=== PATIENT | male | born 1995 | race Two or more races ===

== ENCOUNTER 2025-02-09 08:25 | Emergency (ER) | payer BC ==
[~2025-02-09] VITALS: Ht 177.8 cm; Wt 70.3 kg
[2025-02-09] MEDS ORDERED: TDAP [DIPH/PERTUSSIS/TET] 0.5 ML VIAL IM ONE ×2 (09:00→09:04)
[2025-02-09 09:16] VITALS: BP 113/72; TEMP 98.1; O2SAT 97
== END 2025-02-09 09:17 | disposition home or self-care (01) ==
LOC: ER 08:34
DX: S01.112A Laceration without foreign body of left eyelid and periocular area, initial encounter (principal); W22.8XXA Striking against or struck by other objects, initial encounter; Y93.89 Activity, other specified; Y92.89 Other specified places as the place of occurrence of the external cause; Y99.8 Other external cause status
CPT/HCPCS: 12011; 99282; A6403; 90715

== ENCOUNTER 2025-02-16 07:57 | Emergency (ER) | payer BC ==
[~2025-02-16] VITALS: Ht 177.8 cm; Wt 73.0 kg
[2025-02-16 08:11] VITALS: BP 112/60; TEMP 98.1
[2025-02-16 08:50] VITALS: O2SAT 100
== END 2025-02-16 08:50 | disposition home or self-care (01) ==
LOC: ER 08:03
DX: S01.112D Laceration without foreign body of left eyelid and periocular area, subsequent encounter (principal); X58.XXXD Exposure to other specified factors, subsequent encounter